=== PATIENT | female | born 1995 | race Caucasian/White ===

== ENCOUNTER 2016-11-27 17:10 | Emergency (ER) | payer MEDICAID ==
[~2016-11-27] VITALS: Ht 165.1 cm; Wt 71.7 kg
[~2016-11-27 17:10] MED LIST: CEPHALEXIN500 M1 PO
[2016-11-27 18:23] LABS: microscopic required? YES; urine erythrocyte 1+ (NEGATIVE)
[2016-11-27 19:01] VITALS: BP 102/54
== END 2016-11-27 19:01 | disposition home or self-care (01) ==
LOC: ED 17:10
PROVIDERS: Emergency Medicine
DX: K21.9 Gastro-esophageal reflux disease without esophagitis (principal); N39.0 Urinary tract infection, site not specified

== ENCOUNTER 2018-11-20 15:33 | Emergency (ER) | payer MEDICAID ==
[~2018-11-20] VITALS: Ht 154.9 cm; Wt 67.1 kg
[2018-11-20 16:14] VITALS: BP 129/71; Ht 154.9 cm; Wt 67.1 kg
== END 2018-11-20 17:06 | disposition home or self-care (01) ==
LOC: ED 15:33
DX: L73.8 Other specified follicular disorders (principal); L02.214 Cutaneous abscess of groin; Z98.890 Other specified postprocedural states